=== PATIENT | male | born 1950 | race Caucasian/White ===

== ENCOUNTER 2019-08-09 12:51 | Emergency (ER) | payer OTHER ==
[~2019-08-09] VITALS: Ht 182.9 cm; Wt 110.7 kg
--- NOTE | 2019-08-09 13:00 | NUR ---
PT TO ER BED 7
[2019-08-09 13:01] VITALS: BP 141/76
--- NOTE | 2019-08-09 13:10 | NUR ---
PT AMB TO BED 7.
--- NOTE | 2019-08-09 13:22 | NUR ---
68 YO MALE CO COUGH X22D AND FEVER X3D. PT CURRENT TEMP IS 100. PT STATES THAT CHEST HURTS FROM COUGHING. CURRENT PAIN IS 7/10. PT HAS HX OF HTN BUT NOT ON MEDS AT THIS TIME. PT IS LAYING IN BED WITH AT BEDSIDE. 1X SIDE RAIL UP FOR SAFETY.
[2019-08-09] MEDS: KETOROLAC 30 MG/ML VIAL IVP ONE (13:53)
[2019-08-09] MEDS: methylPREDNISolone SS 125 MG/2 ML VIAL IVP ONE (13:53)
[2019-08-09 13:56] LABS: BASOPHILS # (AUTO) 0.1 K/uL (0.00-0.22); BASOPHILS % (AUTO) 0.7 % (0.0-2.0); EOSINOPHILS # (AUTO) 0.1 K/uL (0-0.4); EOSINOPHILS % (AUTO) 0.6 % (0.0-4.0); HEMATOCRIT 44.3 % (36-52); HEMOGLOBIN 14.8 g/dL (12.0-18.0); LYMPHOCYTES # (AUTO) 1.8 K/uL (2.0-11.5); MEAN CORPUSCULAR HEMOGLOBIN 29 pg (27-31); MEAN CORPUSCULAR HGB CONC 33 g/dL (33-37); MEAN CORPUSCULAR VOLUME 86.3 fL (80-94); MONOCYTES # (AUTO) 1.1 K/uL (0.8-1.0); MONOCYTES % (AUTO) 7.6 % (1.7-9.3); NEUTROPHILS # (AUTO) 11.7 K/uL (1.8-7.7); NEUTROPHILS % (AUTO) 79.1 % (42.2-75.2); PLATELET COUNT (AUTO) 168 K/uL (140-450); RED BLOOD CELL COUNT(AUTO) 5.14 MIL/uL (4.20-6.10); RED CELL DISTRIBUTION WIDTH 13.3 % (11.6-13.7); WHITE BLOOD COUNT (AUTO) 14.8 K/uL (4.8-10.8)
--- NOTE | 2019-08-09 13:57 | NUR ---
PT GIVEN URINAL BEDSIDE FOR COLLECTION OF URINE.
[2019-08-09] MEDS: NACL 0.9% 1,000 ML IV SCH (13:59)
--- NOTE | 2019-08-09 14:01 | NUR ---
RADIOLOGY AT BEDSIDE.
--- NOTE | 2019-08-09 14:02 | NUR ---
URINE COLLECTED AND TAKEN TO LAB
--- NOTE | 2019-08-09 14:05 | NUR ---
RESPIRATORY AT BEDSIDE FOR RESPIRATORY INTERVENTION.
[2019-08-09] MEDS: ALBUTEROL 0.083% 2.5 MG/3 ML NEBU INH ONE (14:07)
[2019-08-09] MEDS: IPRATROPIUM 0.02% 0.5 MG/2.5 ML NEBU INH ONE (14:07)
[2019-08-09 14:20] LABS: ALBUMIN 3.5 g/dL (3.4-5.0); ANION GAP 14.2 (8-16); CARBON DIOXIDE 26.8 mmol/L (21-32); CREATININE 0.9 mg/dL (0.6-1.3); TOTAL BILIRUBIN 0.5 mg/dL (0.0-1.0)
[2019-08-09 14:42] LABS: APPEARANCE,URINE CLEAR (CLEAR); BILIRUBIN,URINE NEGATIVE (NEGATIVE); BLOOD, URINE NEGATIVE (NEGATIVE); COLOR,URINE YELLOW (YELLOW); LEUKOCYTE ESTERASE ,URINE NEGATIVE (NEGATIVE); NITRITE, URINE NEGATIVE (NEGATIVE); UGLUCOSE 2+ (NEGATIVE)
--- NOTE | 2019-08-09 16:18 | NUR ---
Patient discharged with v/s stable. Written and verbal after care instructions given and explained. Patient alert, oriented and verbalized understanding of instructions. Ambulatory with steady gait. All questions addressed prior to discharge. ID band removed. Patient advised to follow up with PMD. Rx of ALBUTEROL, PREDNISONE AND PROMETHAZINE given. Patient educated on indication of medication including possible reaction and side effects. Opportunity to ask questions provided and answered.
[2019-08-09 16:19] VITALS: BP 141/76
--- NOTE | 2019-08-09 16:20 | NUR ---
IV removed, catheter intact and site benign. Applied folded 4x4 gauze and tape to stop bleeding.
== END 2019-08-09 16:18 | disposition home or self-care (01) ==
LOC: MED 12:51
DX: J45.909 Unspecified asthma, uncomplicated (principal)
CPT/HCPCS: 36415; 71045; 80053; 81003; 83605; 85025; 87040; 87804; 93005; 94640; 96361; 96374; 96375; 99284; J1885; J2930; J7030; J7613; J7644; Q0092

== ENCOUNTER 2020-06-13 14:10 | Emergency (ER) | payer OTHER ==
[~2020-06-13] VITALS: Ht 182.9 cm; Wt 111.1 kg
[2020-06-13 14:58] VITALS: BP 144/89
--- NOTE | 2020-06-13 15:02 | NUR ---
PT PLACED IN CHAIR A.
[2020-06-13] MEDS ORDERED: LIDOCAINE MPF 1% 10 MG/ML VIAL INJ ONE ×2 (15:30)
[2020-06-13] MEDS ORDERED: BACITRACIN OINT 500 UNITS/GM PKT TP ONE (15:30)
--- NOTE | 2020-06-13 15:32 | NUR ---
PA at pt bedside.
--- NOTE | 2020-06-13 16:29 | NUR ---
C/O LEFT ARM LACERATION
[2020-06-13 16:30] VITALS: BP 144/89
== END 2020-06-13 16:30 | disposition home or self-care (01) ==
LOC: MED 14:10
DX: S51.812A Laceration without foreign body of left forearm, initial encounter (principal); J45.909 Unspecified asthma, uncomplicated; I10 Essential (primary) hypertension; Z98.890 Other specified postprocedural states; W27.0XXA Contact with workbench tool, initial encounter; Y93.89 Activity, other specified; Y92.89 Other specified places as the place of occurrence of the external cause; Y99.8 Other external cause status
CPT/HCPCS: 12002; 90471; 90715; 99283; J2001

== ENCOUNTER 2020-12-23 21:36 | Emergency (ER) | payer OTHER ==
[~2020-12-23] VITALS: Ht 185.4 cm; Wt 99.8 kg
[2020-12-23 21:46] VITALS: BP 157/110
--- NOTE | 2020-12-23 21:46 | NUR ---
TO BED AMBULATORY
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
--- NOTE | 2020-12-23 23:15 | NUR ---
Dr. Ozuna examining patient.
[2020-12-23] MEDS ORDERED: ceFAZolin 1,000 MG VIAL IM ONE (23:45)
[2020-12-23] MEDS ORDERED: HYDROcodone/APAP 5/325 MG 1 TAB TAB PO ONE (23:45)
--- NOTE | 2020-12-23 23:56 | NUR ---
X-RAY IN THE ROOM
[2020-12-23 23:58] LABS: BASOPHILS # (AUTO) 0.1 K/uL (0.00-0.22); BASOPHILS % (AUTO) 0.9 % (0.0-2.0); EOSINOPHILS # (AUTO) 0.2 K/uL (0-0.4); EOSINOPHILS % (AUTO) 2.2 % (0.0-4.0); HEMATOCRIT 43.8 % (36-52); LYMPHOCYTES # (AUTO) 2.5 K/uL (2.0-11.5); LYMPHOCYTES % (AUTO) 24.2 % (20.5-51.1); MEAN CORPUSCULAR HEMOGLOBIN 30 pg (27-31); MEAN CORPUSCULAR HGB CONC 34 g/dL (33-37); MEAN CORPUSCULAR VOLUME 86.2 fL (80-94); MONOCYTES # (AUTO) 0.8 K/uL (0.8-1.0); MONOCYTES % (AUTO) 8.1 % (1.7-9.3); NEUTROPHILS # (AUTO) 6.6 K/uL (1.8-7.7); NEUTROPHILS % (AUTO) 64.6 % (42.2-75.2); PLATELET COUNT (AUTO) 109 K/uL (140-450); RED BLOOD CELL COUNT(AUTO) 5.08 MIL/uL (4.20-6.10); RED CELL DISTRIBUTION WIDTH 13.8 % (11.6-13.7); WHITE BLOOD COUNT (AUTO) 10.1 K/uL (4.8-10.8)
[2020-12-24] MEDS ORDERED: LIDOCAINE MPF 1% 5 ML ONE (00:21)
[2020-12-24 00:48] LABS: ANION GAP 16.7 (8-16); POTASSIUM 3.7 mmol/L (3.5-5.1)
[2020-12-24 00:49] LABS: ALBUMIN 3.5 g/dL (3.4-5.0); CREATININE 1.1 mg/dL (0.6-1.3); TOTAL BILIRUBIN 0.4 mg/dL (0.0-1.0)
[2020-12-24] MEDS ORDERED: AMOX-1000 PO (01:30)
[2020-12-24] MEDS ORDERED: HYDR-5080 PO (01:30)
[2020-12-24 01:45] VITALS: BP 149/98
--- NOTE | 2020-12-24 01:45 | NUR ---
Patient discharged with v/s stable. Written and verbal after care instructions given and explained. Patient alert, oriented and verbalized understanding of instructions. Ambulatory with steady gait. ACCOMPANIED BY FAMILY ON D/C. All questions addressed prior to discharge. ID band removed. Patient advised to follow up with PMD. Rx of AUGMENTIN AND NORCO given. Patient educated on indication of medication including possible reaction and side effects. Opportunity to ask questions provided and answered.
== END 2020-12-24 01:45 | disposition home or self-care (01) ==
LOC: MED 21:36
DX: S62.615A Displaced fracture of proximal phalanx of left ring finger, initial encounter for closed fracture (principal); S62.617A Displaced fracture of proximal phalanx of left little finger, initial encounter for closed fracture; S61.215A Laceration without foreign body of left ring finger without damage to nail, initial encounter; S61.217A Laceration without foreign body of left little finger without damage to nail, initial encounter; S61.213A Laceration without foreign body of left middle finger without damage to nail, initial encounter; J45.909 Unspecified asthma, uncomplicated; I10 Essential (primary) hypertension; Y04.2XXA Assault by strike against or bumped into by another person, initial encounter; Y93.89 Activity, other specified; Y92.89 Other specified places as the place of occurrence of the external cause; Y99.8 Other external cause status
CPT/HCPCS: 12001; 36415; 73130; 80053; 85025; 90471; 90715; 96372; 99284; J0690; J2001